=== PATIENT | male | born 1950 | race Two or more races ===

== ENCOUNTER 2019-04-21 12:01 | Inpatient (IN) | payer OTHER ==
[~2019-04-21] VITALS: Ht 154.9 cm; Wt 89.4 kg
[2019-04-21] MEDS ORDERED: BISOPROLOL-HCT1 EACH PO (13:06)
[2019-04-21] MEDS ORDERED: ATORVASTATIN CA40 MG PO (13:06)
[2019-04-21] MEDS ORDERED: CLONAZEPAM1 M1 PO (13:07)
[2019-05-01] MEDS ORDERED: TRAM1TAB98 PO (12:50)
[2019-05-01] MEDS ORDERED: PANTOPRAZOLE SO40 MG PO (12:50)
[2019-05-01] MEDS ORDERED: INTESTINEX680 M1 PO (12:51)
[2019-05-01] MEDS ORDERED: AMOX1TAB5 PO (12:51)
== END 2019-05-01 13:32 | disposition home or self-care (01) | DRG 331 ==
LOC: SURH 04-26 06:25 → O/R 04-26 06:25 → SURH 04-26 12:01
PROVIDERS: ADMIT Surgery
PROC: 07TB4ZZ Resection of Mesenteric Lymphatic, Percutaneous Endoscopic Approach (ICD-10-PCS; 2019-04-26)
PROC: 4A033R1 Measurement of Arterial Saturation, Peripheral, Percutaneous Approach (ICD-10-PCS; 2019-04-26)
PROC: 4A12X4Z Monitoring of Cardiac Electrical Activity, External Approach (ICD-10-PCS; 2019-04-26)
PROC: 0DTF4ZZ Resection of Right Large Intestine, Percutaneous Endoscopic Approach (ICD-10-PCS; principal; 2019-04-26 16:00)
DX: D12.2 Benign neoplasm of ascending colon (principal); N18.3 Chronic kidney disease, stage 3 (moderate); G47.33 Obstructive sleep apnea (adult) (pediatric); R73.01 Impaired fasting glucose; F17.200 Nicotine dependence, unspecified, uncomplicated; L80 Vitiligo; I13.10 Hypertensive heart and chronic kidney disease without heart failure, with stage 1 through stage 4 chronic kidney disease, or unspecified chronic kidney disease

== ENCOUNTER 2019-04-25 05:52 | Day surgery (SDC) | payer OTHER ==
[~2019-04-25 05:52] MED LIST: ATORVASTATIN CA40 MG PO; BISOPROLOL-HCT1 EACH PO; CLONAZEPAM1 M1 PO
== END 2019-04-25 12:50 | disposition home or self-care (01) ==
LOC: AMB-ENDOS 05:52
DX: D12.2 Benign neoplasm of ascending colon (principal)

== ENCOUNTER 2020-05-28 05:50 | Day surgery (SDC) | payer OTHER ==
[~2020-05-28 05:50] MED LIST changes: +AMOX1TAB5 PO; +INTESTINEX680 M1 PO; +PANTOPRAZOLE SO40 MG PO; +TRAM1TAB98 PO
== END 2020-05-28 10:25 | disposition home or self-care (01) ==
LOC: AMB-ENDOS 05:50
PROVIDERS: ATTEND Surgery
DX: D12.3 Benign neoplasm of transverse colon (principal); D12.5 Benign neoplasm of sigmoid colon; Z20.828 Contact with and (suspected) exposure to other viral communicable diseases